=== PATIENT | female | born 1980 | race Caucasian/White ===

== ENCOUNTER 2021-02-01 03:31 | Emergency (ER) | payer OTHER ==
[~2021-02-01] VITALS: Ht 167.6 cm; Wt 109.0 kg
[2021-02-01 03:42] VITALS: BP 167/102
[2021-02-01] MEDS ORDERED: IBUPROFEN 600MG TABLET PO ONE (04:15)
[2021-02-01] MEDS ORDERED: TETANUS, DIPHTHERIA, PERTUSSIS VAC/PF 0.5ML (>10YR OLD) IM ONE (04:15)
== END 2021-02-01 04:50 | disposition home or self-care (01) ==
LOC: ER 04:23
DX: S06.0X0A Concussion without loss of consciousness, initial encounter (principal); S40.812A Abrasion of left upper arm, initial encounter; Y07.03 Male partner, perpetrator of maltreatment and neglect; R03.0 Elevated blood-pressure reading, without diagnosis of hypertension; R94.31 Abnormal electrocardiogram [ECG] [EKG]; Y04.2XXA Assault by strike against or bumped into by another person, initial encounter; Y93.89 Activity, other specified; Y92.89 Other specified places as the place of occurrence of the external cause; E03.9 Hypothyroidism, unspecified; Z98.84 Bariatric surgery status
CPT/HCPCS: 93005; 99283